=== PATIENT | female | born 1955 | race Caucasian/White ===

== ENCOUNTER → 2016-08-19 | Outpatient (CLI) | payer BC, OTHER ==
[2016-08-19 18:44] LABS: BASO % 0.7 %; BASO ABS # 0.05 K/uL (0-0.2); COMPLETE YES; EOS % 1.5 %; HEMATOCRIT 42.4 % (37-47); IG% 0.3 %; LYMPH % 45.6 %; LYMPH ABS # 3.37 K/uL (1.2-3.4); MEAN CELL VOLUME 94.2 fL (80-100); MEAN PLATELET VOLUME 10.5 fL (7.4-10.4); MONO % 7.3 %; NEUT % 44.6 %; PLATELET COUNT 276 K/uL (130-400); WHITE BLOOD COUNT 7.39 K/uL (4.8-10.8)
[2016-08-19 19:06] LABS: ALB/GLOB RATIO 1.4 (0.9-2); ALKALINE PHOSPHATASE 55 U/L (45-117); AST/SGOT 21 U/L (15-37); BLOOD UREA NITROGEN 11 mg/dl (7-18); BUN/CREATININE RATIO 12.4 (10-20); CALCIUM 9.3 mg/dl (8.5-10.1); CARBON DIOXIDE 27 mmol/L (21-32); CHLORIDE 106 mmol/L (98-107); CHOLESTEROL 283 mg/dl (0-200); CHOLESTEROL/HDL RATIO 4.4; CREATININE 0.87 mg/dl (0.60-1.20); GLUCOSE 81 mg/dl (70-99); HDL CHOLESTEROL 65 mg/dl; LDL CHOLESTEROL CALCULATED 189 mg/dl; POTASSIUM 4.1 mmol/L (3.5-5.1); SODIUM 140 mmol/L (136-145); TRIGLYCERIDES 147 mg/dl (0-150); VERY LOW DENSITY LIPOPROT CALC 29 mg/dl
[2016-08-19 19:31] LABS: ALT/SGPT 37 U/L (12-78)
== END | disposition home or self-care (01) ==
LOC: C.LABSPEC 18:06
PROVIDERS: ATTEND Family Medicine
DX: E03.9 Hypothyroidism, unspecified (principal); J45.30 Mild persistent asthma, uncomplicated

== ENCOUNTER → 2016-09-23 | Outpatient (CLI) | payer BC ==
[2016-09-23 19:58] LABS: ALT/SGPT 28 U/L (12-78); BLOOD UREA NITROGEN 16 mg/dl (7-18); BUN/CREATININE RATIO 19.4 (10-20); CALCIUM 9.1 mg/dl (8.5-10.1); CARBON DIOXIDE 25 mmol/L (21-32); CHLORIDE 108 mmol/L (98-107); CREATININE 0.81 mg/dl (0.60-1.20); GLUCOSE 105 mg/dl (70-99); POTASSIUM 4.4 mmol/L (3.5-5.1); SODIUM 140 mmol/L (136-145)
[2016-09-23 20:08] LABS: ALB/GLOB RATIO 1.2 (0.9-2); ALKALINE PHOSPHATASE 57 U/L (45-117); AST/SGOT 14 U/L (15-37)
== END | disposition home or self-care (01) ==
LOC: C.LABSPEC 18:21
PROVIDERS: ATTEND Family Medicine
DX: E03.9 Hypothyroidism, unspecified (principal); E78.2 Mixed hyperlipidemia

== ENCOUNTER → 2016-10-21 | Outpatient (CLI) | payer BC ==
--- NOTE | 2016-10-21 16:13 | MAMMOGRAPHY REPORT ---
BILATERAL DIGITAL SCREENING MAMMOGRAM TOMOSYNTHESIS WITH CAD: 10/21/2016 CLINICAL HISTORY: Routine screening. TECHNIQUE: Breast tomosynthesis in addition to standard 2D mammography was performed. Current study was also evaluated with a Computer Aided Detection (CAD) system. COMPARISON: Comparison is made to exams dated: 09/26/2014 mammogram, 08/30/2013 mammogram, 07/20/2012 ma mmogram, 06/10/2011 mammogram, 04/30/2010 mammogram - [facility], and 08/08/2008. BREAST COMPOSITION: There are scattered areas of fibroglandular density in both breasts. FINDINGS: No suspicious masses, calcifications, or areas of architectural distortion are noted in ei ther breast. There has been no significant interval change compared to prior exams. IMPRESSION: ACR BI-RADS CATEGORY 1: NEGATIVE There is no mammographic evidence of malignancy. A 1 year screening mammogram is recommended. The pa tient will receive written notification of the results. Approximately 10% of breast cancers are not detected with mammography. A negative mammographic report should not delay biopsy if a clinically suggestive mass is present. Rika Justin M.D. 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
== END ==
LOC: C.MAMM 13:57
PROVIDERS: ATTEND Family Medicine
DX: Z12.31 Encounter for screening mammogram for malignant neoplasm of breast (principal)

== ENCOUNTER → 2017-03-10 | Outpatient (CLI) | payer BC ==
[2017-03-10 18:24] LABS: BASO % 0.4 %; BASO ABS # 0.03 K/uL (0-0.2); COMPLETE YES; HEMATOCRIT 41.6 % (37-47); IG% 0.3 %; LYMPH % 37.6 %; LYMPH ABS # 2.79 K/uL (1.2-3.4); MEAN CELL VOLUME 91.6 fL (80-100); MEAN CORPUSCULAR HEMOGLOBIN 31.5 pg (25-34); MEAN CORPUSCULAR HGB CONC 34.4 g/dl (32-36); MEAN PLATELET VOLUME 10.2 fL (7.4-10.4); MONO % 8.6 %; NEUT % 51.1 %; PLATELET COUNT 273 K/uL (130-400); RED BLOOD COUNT 4.54 M/uL (4.2-5.4); WHITE BLOOD COUNT 7.42 K/uL (4.8-10.8)
[2017-03-10 18:52] LABS: ALKALINE PHOSPHATASE 69 U/L (45-117); ALT/SGPT 26 U/L (12-78); AST/SGOT 13 U/L (15-37); BLOOD UREA NITROGEN 12 mg/dl (7-18); BUN/CREATININE RATIO 18.1 (10-20); CALCIUM 9.1 mg/dl (8.5-10.1); CARBON DIOXIDE 25 mmol/L (21-32); CHLORIDE 103 mmol/L (98-107); CREATININE 0.65 mg/dl (0.60-1.20); GLUCOSE 90 mg/dl (70-99); POTASSIUM 4.2 mmol/L (3.5-5.1); SODIUM 135 mmol/L (136-145)
[2017-03-10 19:05] LABS: ALB/GLOB RATIO 1.1 (0.9-2)
--- NOTE | 2017-03-14 11:09 | CODING QUERY NO DIAGNOSIS ---
TREATMENT RENDERED WITHOUT A DIAGNOSIS 56 To promote full compliance with coding requirements relating to patient care, physician participation is requested in all cases of human resources leader uncertainty. Please assist us with providing a diagnosis/symptom for the test(s) below: A diagnosis/symptom was not documented on your Order. A valid diagnosis/symptom is required to bill all insurances. Please remember that we are unable to code a diagnosis of rule out, probable, possible, questionable, or suspected. DOS 03/10/17 Tests that require a diagnosis: * CBC W/AUTO DIFF DIAGNOSIS: * COMP METABOLIC DIAGNOSIS: * T4 FREE DIAGNOSIS: * TSH DIAGNOSIS: Provider Signature: Date: Thank you Renu Preciado [facility] Information Management Once completed, please kindly fax back to [phone] For questions please call [phone]
== END | disposition home or self-care (01) ==
LOC: C.LABSPEC 17:59
PROVIDERS: ATTEND Family Medicine
DX: E03.9 Hypothyroidism, unspecified (principal)